=== PATIENT | male | born 1975 | race Caucasian/White ===

== ENCOUNTER 2016-12-23 00:11 | Emergency (ER) | payer SELFPAY ==
[~2016-12-23] VITALS: Ht 175.3 cm; Wt 104.5 kg
[2016-12-23 00:18] VITALS: Ht 175.3 cm; Wt 104.5 kg
[2016-12-23] MEDS ORDERED: KETOROLAC 30 MG INJ IV STA (01:55)
[2016-12-23] MEDS ORDERED: METHYLPREDNISOLONE 125 MG INJ IV ONE (02:00)
[2016-12-23] MEDS ORDERED: CLINDAMYCIN 600 MG/D5W (PMX) 50 ML IVPB SCH (02:00)
[2016-12-23] MEDS ORDERED: PRED50TA PO (02:37)
[2016-12-23] MEDS ORDERED: IBUP400T22 PO (02:37)
[2016-12-23] MEDS ORDERED: CLIN-73 PO (02:37)
--- NOTE | 2016-12-23 02:41 | ERD ---
ER Documentation Chief Complaint Date/Time DATE: 12/23/16 TIME: 02:38 Chief Complaint Left ear pain reading to the left ear x 5 days HPI 41-year-old male presents to emergency department for complaints of left throat pain radiating to the left ear area for 5 days. Patient described the pain as throbbing pain, 8/10 scale, is worse upon swallowing. Patient feels some swelling in the left side of the tonsils. Patient denies any fever or chills. Patient denies any stridor. Patient denies any shortness of breath. Patient did not take any medication stop her symptoms. Patient denies any ear discharge. Patient denies any problems with hearing. ROS All systems reviewed and are negative except as per history of present illness. Medications Home Meds Active Scripts Prednisone* (Prednisone*) 50 Mg Tablet, 50 MG PO DAILY for 5 Days, TAB Prov:CATRACHITA KIMBROUGH NP 12/23/16 Ibuprofen* (Motrin*) 400 Mg Tab, 400 MG PO Q6H Y for PAIN AND OR ELEVATED TEMP, #30 TAB Prov:CATRACHITA KIMBROUGH NP 12/23/16 Clindamycin Hcl* (Clindamycin Hcl*) 300 Mg Capsule, 300 MG PO TID for 10 Days, CAP Prov:CATRACHITA KIMBROUGH NP 12/23/16 Allergies Allergies: Coded Allergies: No Known Drug Allergies (Verified Allergy, Unknown, 12/23/16) PMhx/Soc Medical and Surgical Hx: pt denies Medical Hx, pt denies Surgical Hx History of Surgery: No Hx Neurological Disorder: No Hx Respiratory Disorders: No Hx Cardiac Disorders: No Hx Psychiatric Problems: No Hx Miscellaneous Medical Probl: No Hx Alcohol Use: No Hx Substance Use: No Hx Tobacco Use: No Smoking Status: Never smoker FmHx Family History: No coronary disease, No diabetes, No other Physical Exam Vitals Vital Signs Date Time Temp Pulse Resp B/P Pulse Ox O2 Delivery O2 Flow Rate FiO2 12/23/16 03:31 98.9 110 16 125/88 97 Room Air 12/23/16 00:18 98.9 116 20 137/92 97 Physical Exam GENERAL: The patient is well developed and appropriate for usual state of health, in no apparent distress. HEENT: Atraumatic. Ears: Normal tympanic membrane, no erythema or bulging. No ear canal swelling. No ear discharge. Nose: normal nasal turbinates, no erythema or swelling. Normal nasal discharge. Throat: oropharynx erythematous with some exudate noted in the left tonsil, noted swelling in the peritonsillar area, with mild tenderness on palpation, no fluctuance noted. No lymphadenopathy. CHEST: Clear to auscultation bilaterally. There are no rales, wheezes or rhonchi. HEART: Regular rate and rhythm. No murmurs, clicks, rubs or gallops. No S3 or S4. ABDOMEN: Soft, nontender and nondistended. Good bowel sounds. No rebound or guarding. No gross peritonitis. No gross organomegaly or masses. No Ho sign or McBurney point tenderness. BACK: No midline or flank tenderness. EXTREMITIES: Equal pulses bilaterally. There is no peripheral clubbing, cyanosis or edema. No focal swelling or erythema. Full range of motion. Grossly neurovascularly intact. NEURO: Alert and oriented. Cranial nerves 2-12 intact. Motor strength in all 4 extremities with 5/5 strength. Sensation grossly intact. Normal speech and gait. SKIN: There is no apparent rash or petechia. The skin is warm and dry. HEMATOLOGIC AND LYMPHATIC: There is no evidence of excessive bruising or lymphedema. No gross cervical, axillary, or inguinal lymphadenopathy. Results 24 hrs Current Medications Medications (Trade) Dose Ordered Sig/Chantal Route PRN Reason Start Time Stop Time Status Last Admin Dose Admin Clindamycin HCl/ Dextrose (Cleocin 600 Mg/ D5W (Pmx)) 50 ml @ 50 mls/hr ONCE IVPB 12/23/16 02:00 12/23/16 02:59 DC 12/23/16 02:32 Ketorolac Tromethamine (Toradol) 30 mg ONCE STAT IV 12/23/16 01:55 12/23/16 01:57 DC 12/23/16 02:17 Methylprednisolone Sodium Succinate (Solu-Medrol) 125 mg ONCE ONCE IV 12/23/16 02:00 12/23/16 02:01 DC 12/23/16 02:17 IV clindamycin, Toradol and Solu-Medrol was given here in emergency department, tolerated medication well. Procedures/MDM Medical decision making: Patient symptoms is likely consistent with acute bacterial pharyngitis, most likely strep throat. Can be possible early peritonsillar abscess, strict return to ER precautions was advised, and advised to see ENT doctor within 2-3 days for further evaluation of symptoms, no symptoms of mononucleosis, no symptoms of epiglottitis, laryngitis. No oral airway obstruction noted. No symptoms of sepsis at this time. Patient appears well and is hemodynamically stable. Patient was given for clindamycin, prednisone, ibuprofen, is advised to follow-up with primary care doctor or ENT specialist in 2-3 days for reevaluation of symptoms. Patient is advised to do salt water gargles. Patient is advised to return to emergency department for worsening symptoms. Disposition: Home. Stable. Departure Diagnosis: Primary Impression: Acute bacterial pharyngitis Condition: Stable Patient Instructions: Pharyngitis, Strep (Presumed) Referrals: HERNANDEZ SOL MD, ALI R MD Additional Instructions: see ent specialist 1-2 days for reevaluation CATRACHITA KIMBROUGH NP Dec 23, 2016 02:41
[2016-12-23 03:31] VITALS: BP 125/88; PULSE 110; RESP 16; TEMP 98.9
== END 2016-12-23 03:33 | disposition home or self-care (01) ==
LOC: FTE 00:11
DX: J02.9 Acute pharyngitis, unspecified (principal)
CPT/HCPCS: 96365; 96375; 99284; J1885; J2930